=== PATIENT | female | born 1950 | race Caucasian/White ===

== ENCOUNTER 2017-11-21 20:40 | Emergency (ER) | payer MEDICARE ==
[2017-11-21] MEDS: LIDOCAINE WITH 8.4% SOD BICARB 3 ML DISP.SYRIN. INJ (22:00)
[2017-11-21] MEDS: DIPHTH,PERTUSS(ACELL),TET TOX 0.5 ML DISP.SYRIN. VAX IM (23:20)
== END 2017-11-21 23:24 | disposition home or self-care (01) ==
LOC: ER 20:40
DX: S61.216A Laceration without foreign body of right little finger without damage to nail, initial encounter (principal); E78.00 Pure hypercholesterolemia, unspecified; E11.9 Type 2 diabetes mellitus without complications; E03.9 Hypothyroidism, unspecified; I10 Essential (primary) hypertension; W26.0XXA Contact with knife, initial encounter; Y93.89 Activity, other specified; Y99.8 Other external cause status; Y92.89 Other specified places as the place of occurrence of the external cause
CPT/HCPCS: 12001; 90471; 90715; 96372; 99283-25

== ENCOUNTER → 2018-09-12 | Outpatient (CLI) | payer MEDICARE ==
[2017-11-21 21:01] VITALS: BP 159/70
[~2018-09-12] MED LIST: CEPH500C PO
--- NOTE | 2018-09-12 16:39 | KCIC ---
EXAM: AP, oblique and lateral views of the left foot DATE: 09/12/2018 12:00 AM INDICATION: Left foot pain, most prominent at the first MTP joint COMPARISON: No Prior FINDINGS: There is no evidence for acute fracture or dislocation. Midfoot degenerative changes are seen with small osteophytes and mild joint space narrowing. Bulky calcaneal enthesopathy. Diffuse soft tissue swelling about the left great toe. IMPRESSION: 1. No evidence of acute fracture or dislocation. 2. Midfoot degenerative changes are seen. 3. Bulky calcaneal enthesopathy. 4. Soft tissue swelling about the great toe. Electronically signed by: Grant Hill MD (09/12/2018 4:36 PM) [id number]
== END | disposition home or self-care (01) ==
LOC: KCIC 14:54
PROVIDERS: ATTEND Nurse Practitioner Family
DX: M19.072 Primary osteoarthritis, left ankle and foot (principal); M25.775 Osteophyte, left foot; M77.32 Calcaneal spur, left foot; M79.89 Other specified soft tissue disorders
CPT/HCPCS: 73630

== ENCOUNTER → 2019-10-23 | Outpatient (CLI) | payer MEDICARE ==
[2017-11-21 21:01] VITALS: BP 159/70
--- NOTE | 2019-10-23 14:04 | RAD ---
PELVIS W/TV: 10/23/2019 1:30 PM INDICATION: 69 years old Female. Reason: MENOPAUSAL BLEEDING / Spl. Instructions: / History: . COMPARISON: None. TECHNIQUE: Transabdominal and transvaginal sonographic evaluation of the pelvis was performed. Grayscale, color Doppler and spectral waveform analysis were utilized. FINDINGS: UTERUS: Size: 8.1 x 7.5 x 6.1 cm. Masses: Uterine fibroids are identified with the largest intramural fibroid identified in the posterior uterine fundus measuring 4.6 x 4.3 x 3.5 cm. Endometrium: 8 mm. No suspicious vascularity is identified. Ovaries are obscured by bowel gas. FREE FLUID: None. URINARY BLADDER: Unremarkable. IMPRESSION: Intramural uterine fibroids are present, measuring up to 4.6 cm in the posterior uterine fundus. Endometrium is within normal limits. Ovaries are not visualized, limiting evaluation. Electronically signed by: Carla Cunningham MD (10/23/2019 2:00 PM) [facility]
== END | disposition home or self-care (01) ==
LOC: US 12:48
PROVIDERS: ATTEND Nurse Practitioner Family
DX: D25.1 Intramural leiomyoma of uterus (principal)
CPT/HCPCS: 76830; 76856

== ENCOUNTER 2020-08-15 11:39 | Emergency (ER) | payer MEDICARE ==
[~2020-08-15] VITALS: Ht 162.6 cm; Wt 120.0 kg
--- NOTE | 2020-08-15 11:59 | PHYS DOC ---
Past Medical History Past Medical History: Diabetes-Type II, High Cholesterol, Hypertension, H ypothyroid Past Surgical History: Cholecystectomy, Knee Replacement, Tonsillectomy, Other Additional Past Surgical Histo: THYROID REMOVAL,uterine ablation, rt hand sx x3 Smoking Status: Never Smoker Alcohol Use: None General Adult EDM: Chief Complaint: LOWER EXTREMITY SWELLING HPI: HPI: Patient is a 70 year old female with a history of diabetes type 2, hypertension, high cholesterol, hypothyroidism, who presents to the ED today with redness and swelling to the left lower extremity that began yesterday. Patient denies any fever, nausea vomiting. Review of Systems: Review of Systems: Constitutional: Denies fever or chills. [] Eyes: Denies change in visual acuity. [] HENT: Denies nasal congestion or sore throat. [] Respiratory: Denies cough or shortness of breath. [] Cardiovascular: Denies chest pain or edema. [] GI: Denies abdominal pain, nausea, vomiting, bloody stools or diarrhea. [] : Denies dysuria. [] Musculoskeletal: Reports left lower extremity swelling. Denies back pain Integument: Denies rash. [] Neurologic: Denies headache, focal weakness or sensory changes. [] Psychiatric: Denies depression or anxiety. [] Heart Score: C/O Chest Pain: N/A Risk Factors: Risk Factors: DM, Current or recent (<one month) smoker, HTN, HLP, family history of CAD, obesity. Risk Scores: Score 0 - 3: 2.5% MACE over next 6 weeks - Discharge Home Score 4 - 6: 20.3% MACE over next 6 weeks - Admit for Clinical Observation Score 7 - 10: 72.7% MACE over next 6 weeks - Early Invasive Strategies Allergies: Allergies: Allergies Coded Allergies Type Severity Reaction Last Updated Verified Sulfa (Sulfonamide Antibiotics) Adverse Reaction Intermediate "drug fever" 08/15/20 Yes codeine Adverse Reaction Mild HEADACHE 08/15/20 Yes Physical Exam: PE: Constitutional: Well developed, well nourished, no acute distress, non-toxic appearance. [] HENT: Normocephalic, atraumatic, bilateral external ears normal, oropharynx moist, no oral exudates, nose normal. [] Eyes: PERRLA, EOMI, conjunctiva normal, no discharge. [] Neck: Normal range of motion, no tenderness, supple, no stridor. [] Cardiovascular:Heart rate regular rhythm, no murmur [] Lungs & Thorax: Bilateral breath sounds clear to auscultation [] Abdomen: Bowel sounds normal, soft, no tenderness, no masses, no pulsatile masses. [] Skin: See extremities Back: No tenderness, no CVA tenderness. [] Extremities: Left medial lower extremity with an area of cellulitis roughly 8 x 8 cm, the area is warm, tender to touch, no drainage, no fluctuance. +2 left pedal pulse. Full range of motion to the left lower extremity, cap refill less than 2 seconds to left lower extremity Neurologic: Alert and oriented X 3, normal motor function, normal sensory funct ion, no focal deficits noted. [] Psychologic: Affect normal, judgement normal, mood normal. [] Current Patient Data: Vital Signs: Vital Signs Date Time Temp Pulse Resp B/P (MAP) Pulse Ox O2 Delivery O2 Flow Rate FiO2 08/15/20 11:46 99.1 87 18 189/83 (118) 97 Room Air 99.1 EKG: EKG: [] Radiology/Procedures: Radiology/Procedures: []PROCEDURE: VENOUS LOWER EXTREMITY LEFT Ultrasound venous system of the left leg for 2020. Reason for exam: Swelling and redness. Color Doppler and spectral waveform analysis was performed along with real-time grayscale technique. The deep veins of the left lower extremity show normal compressibility and normal Doppler flow and augmentation of flow extending from the common femoral segment to the popliteal segment. The visualized calf veins also appear normal. IMPRESSION: No evidence of DVT. Electronically signed by: Yasir Lipscomb Jr., MD (08/15/2020 2:14 PM) [id number] DICTATED and SIGNED BY: YASIR LIPSCOMB Jr, MD DATE: 08/15/20 [id number] 0 Course & Med Decision Making: Course & Med Decision Making Pertinent Labs and Imaging studies reviewed. (See chart for details) This is a 70-year-old female patient presenting to the ED today with left lower extremity swelling, redness, symptoms began yesterday. Swelling consistent with cellulitis. Tetanus up-to-date. CBC with a normal WBC, CMP with glucose of 301, anion gap is normal. CRP 56.9. Venous Doppler of the left lower extremity is negative for any acute findings. Patient is afebrile. Was given Rocephin IV in the ED and discharged on clindamycin. She has a PCP, recommended she follows up in the course of next week. Prince Disclaimer: Prince Disclaimer: This electronic medical record was generated, in whole or in part, using a voice recognition dictation system. Departure Departure Impression: Primary Impression: Cellulitis of left lower extremity Additional Impression: Hyperglycemia Disposition: 01 DC HOME SELF CARE/HOMELESS Condition: STABLE Referrals: ADRIANA CORTEZ APRN (PCP) Follow-up with your doctor next week Patient Instructions: Cellulitis, [id number], Hyperglycemia, [id number] Additional Instructions: You have cellulitis of the left lower extremity, your venous Doppler of the left lower extremity was negative for any acute findings. Your blood glucose was running high in the ED, ensure you are taking your diabetes medicine. Please complete the prescribed antibiotics. Please follow-up with your primary care doctor. Come back to the ED at any point symptoms worsen Scripts Clindamycin Hcl (CLINDAMYCIN HCL) 150 Mg Capsule 3 CAP PO TID, #90 CAP Prov: LUCIANO WALSH APRN 08/15/20 LUCIANO WALSH APRN Aug 15, 2020 11:59
[2020-08-15] MEDS ORDERED: IV NORMAL SALINE 1000ML BAG 1,000 ML IV ONE (12:00)
[2020-08-15 12:18] LABS: BASO % 1 % (0-3); EOS # 0.1 x10^3/uL (0.0-0.7); EOS % 2 % (0-3); HEMATOCRIT 40.4 % (36.0-47.0); HEMOGLOBIN 13.9 g/dL (12.0-15.5); LYMPH # 2.6 x10^3/uL (1.0-4.8); LYMPH % 39 % (24-48); MEAN CORPUSCULAR HEMOGLOBIN 29 pg (25-35); MEAN CORPUSCULAR HGB CONC 34 g/dL (31-37); MEAN CORPUSCULAR VOLUME 84 fL (79-100); MONO # 0.7 x10^3/uL (0.0-1.1); MONO % 10 % (0-9); NEUT # 3.3 x10^3/uL (1.8-7.7); NEUT % 49 % (31-73); PLATELET COUNT 156 x10^3/uL (140-400); RED BLOOD COUNT 4.81 x10^6/uL (3.50-5.40); RED CELL DISTRIBUTION WIDTH 14.4 % (11.5-14.5); WHITE BLOOD COUNT 6.8 x10^3/uL (4.0-11.0)
[2020-08-15 12:36] LABS: CALCIUM 8.2 mg/dL (8.5-10.1); CREATININE 0.8 mg/dL (0.6-1.0); GFR 71.1; POTASSIUM 4.1 mmol/L (3.5-5.1)
[2020-08-15 12:42] LABS: ALBUMIN 3.9 g/dL (3.4-5.0); ALBUMIN/GLOBULIN RATIO 1.3 (1.0-1.7); C-REACTIVE PROTEIN 56.9 mg/L (0-3.3); TOTAL PROTEIN 6.9 g/dL (6.4-8.2)
--- NOTE | 2020-08-15 14:17 | RAD ---
Ultrasound venous system of the left leg for 2020. Reason for exam: Swelling and redness. Color Doppler and spectral waveform analysis was performed along with real-time grayscale technique. The deep veins of the left lower extremity show normal compressibility and normal Doppler flow and au gmentation of flow extending from the common femoral segment to the popliteal segment. The visualized calf veins also appear normal. IMPRESSION: No evidence of DVT. Electronically signed by: Stephen Roy Jr., MD (08/15/2020 2:14 PM) [id number]
[2020-08-15] MEDS ORDERED: CLIN150C15 PO (14:32)
[2020-08-15] MEDS ORDERED: cefTRIAXone IV Push 1 GM VIAL. IVP ONE ×2 (14:36→14:45)
[2020-08-15 14:39] VITALS: BP 147/63
== END 2020-08-15 14:51 | disposition home or self-care (01) ==
LOC: ER 11:39
DX: L03.116 Cellulitis of left lower limb (principal); R60.0 Localized edema; E11.65 Type 2 diabetes mellitus with hyperglycemia; E78.00 Pure hypercholesterolemia, unspecified; E03.9 Hypothyroidism, unspecified; Z90.49 Acquired absence of other specified parts of digestive tract; Z90.89 Acquired absence of other organs; Z98.890 Other specified postprocedural states; Z88.2 Allergy status to sulfonamides; Z88.5 Allergy status to narcotic agent
CPT/HCPCS: 36415; 80053; 85025; 86140; 93971; 96361; 96374; 99285; J0696; J7030